=== PATIENT | female | born 1960 | race Two or more races ===

== ENCOUNTER 2022-05-01 19:21 | Emergency (ER) | payer BC ==
[~2022-05-01] VITALS: Ht 152.4 cm; Wt 86.4 kg
[2022-05-01 19:27] VITALS: BP 126/81
[2022-05-01] MEDS ORDERED: ketorolac trometh. 30mg/ml inj. IV ONE (23:20)
[2022-05-01] MEDS ORDERED: ketorolac tromethamine 15mg/ml inj. IM STA (23:24)
[2022-05-02] MEDS ORDERED: oseltamivir phos 75mg capsule PO ONE (00:25)
[2022-05-02] MEDS ORDERED: OSEL75CA17 PO (00:27)
== END 2022-05-02 00:51 | disposition home or self-care (01) ==
LOC: ER 19:23
DX: J10.1 Influenza due to other identified influenza virus with other respiratory manifestations (principal); Z20.822 Contact with and (suspected) exposure to COVID-19; E11.9 Type 2 diabetes mellitus without complications; Z79.899 Other long term (current) drug therapy
CPT/HCPCS: 87502; 87503; 87635; 96372; 99283; C9803; J1885

== ENCOUNTER 2022-07-22 14:51 | Outpatient (CLI) | payer BC ==
[~2022-07-22 14:51] MED LIST: OSEL75CA17 PO
== END 2022-07-22 23:59 | disposition home or self-care (01) ==
LOC: RAD 14:51
PROVIDERS: ATTEND Family Medicine
DX: M19.012 Primary osteoarthritis, left shoulder (principal); M25.551 Pain in right hip
CPT/HCPCS: 73030; 73502

== ENCOUNTER 2024-01-18 13:31 | Outpatient (CLI) | payer BC ==
[~2024-01-18 13:31] MED LIST changes: -ATOR20TA66 PO; -DAPA10TA PO; -FAMO40TA58 PO; -FENO145T38 PO; -LISI2.5T14 PO; -METF500T PO
== END 2024-01-18 23:59 | disposition home or self-care (01) ==
LOC: MRI 13:31
PROVIDERS: ATTEND Family Medicine
DX: M25.551 Pain in right hip (principal); M21.612 Bunion of left foot; N83.201 Unspecified ovarian cyst, right side; M25.661 Stiffness of right knee, not elsewhere classified
CPT/HCPCS: 73721

== ENCOUNTER → 2024-01-18 | Outpatient (CLI) | payer BC ==
[~2024-01-18] MED LIST changes: +ATOR20TA66 PO; +DAPA10TA PO; +FAMO40TA58 PO; +FENO145T38 PO; +LISI2.5T14 PO; +METF500T PO
== END | disposition home or self-care (01) ==
LOC: MRI 08:00
PROVIDERS: ATTEND Family Medicine
DX: S83.231A Complex tear of medial meniscus, current injury, right knee, initial encounter (principal); M25.561 Pain in right knee; M25.531 Pain in right wrist; M94.261 Chondromalacia, right knee; R60.0 Localized edema; M79.641 Pain in right hand; X58.XXXA Exposure to other specified factors, initial encounter; Z68.37 Body mass index [BMI] 37.0-37.9, adult; Y93.89 Activity, other specified; Y92.89 Other specified places as the place of occurrence of the external cause; Y99.8 Other external cause status
CPT/HCPCS: 73721

== ENCOUNTER → 2024-01-18 | Outpatient (CLI) | payer BC | END | disposition home or self-care (01) | LOC: MRI 08:00 | PROVIDERS: ATTEND Family Medicine | DX: M47.816 Spondylosis without myelopathy or radiculopathy, lumbar region (principal); M48.07 Spinal stenosis, lumbosacral region; M43.16 Spondylolisthesis, lumbar region; M51.46 Schmorl's nodes, lumbar region; N28.1 Cyst of kidney, acquired; M79.641 Pain in right hand; M25.531 Pain in right wrist; Z68.37 Body mass index [BMI] 37.0-37.9, adult | CPT/HCPCS: 72148 ==

== ENCOUNTER 2024-02-16 10:38 | Outpatient (CLI) | payer BC ==
[~2024-02-16 10:38] MED LIST changes: +ATOR20TA66 PO; +DAPA10TA PO; +FAMO40TA58 PO; +FENO145T38 PO; +LISI2.5T14 PO; +METF500T PO
== END 2024-02-16 23:59 | disposition home or self-care (01) ==
LOC: RAD 10:38
PROVIDERS: ATTEND Student in an Organized Health Care Education/Training Program
DX: M25.531 Pain in right wrist (principal); M79.641 Pain in right hand; Z68.37 Body mass index [BMI] 37.0-37.9, adult
CPT/HCPCS: 73110; 73130

== ENCOUNTER 2024-08-15 08:45 | Outpatient (CLI) | payer BC ==
[2024-08-15 09:18] LABS: BILIRUBIN,URINE NEGATIVE (Neg); CLARITY,URINE CLEAR (Clear); COLOR,URINE STRAW (Yellow); GLUCOSE, URINE 250 mg/dl (Neg); KETONES,URINE NEGATIVE (Neg); LEUKOCYTE ESTERASE ,URINE NEGATIVE (Neg); NITRITES, URINE NEGATIVE (Neg); OCCULT BLOOD,URINE NEGATIVE (Neg); PROTEIN,URINE NEGATIVE (Neg); UROBILINOGEN,URINE 0.2 E.U/dL (0.2-1.0)
[2024-08-15 09:39] LABS: BASOPHILS % (AUTO) 0.2 % (0-1); EOSINOPHILS # (AUTO) 0.2 X10'3 (0-0.9); EOSINOPHILS % (AUTO) 3.7 % (0-6); HEMATOCRIT 45.6 % (35.0-45.0); HEMOGLOBIN 15.3 g/dl (12.0-16.0); LYMPHOCYTES # (AUTO) 1.7 X10'3 (1.1-4.8); LYMPHOCYTES % (AUTO) 27.9 % (21-51); MEAN CORPUSCULAR HEMOGLOBIN 29.6 PG (27.0-31.0); MEAN CORPUSCULAR HGB CONC 33.5 g/dL (33.0-36.5); MEAN CORPUSCULAR VOLUME 88.4 FL (78-98); MEAN PLATELET VOLUME 8.1 FL (7.4-10.4); MONOCYTES # (AUTO) 0.3 X10'3 (0-0.9); MONOCYTES % (AUTO) 5.5 % (2-12); NEUTROPHILS # (AUTO) 3.8 X10'3 (1.8-7.7); NEUTROPHILS % (AUTO) 62.7 % (42-75); PLATELET COUNT 275 X10'3 (140-440); RED BLOOD COUNT 5.16 X10'6 (4.20-5.60); RED CELL DISTRIBUTION WIDTH 14.2 % (11.5-14.5); WHITE BLOOD COUNT 6.1 X10'3 (4.5-11.0)
[2024-08-15 09:40] LABS: UA COLLECTION TYPE CLN CATCH MIDSTREAM
[2024-08-15 09:50] LABS: HEMOGLOBIN A1C 5.7 % (4.5-6.2)
[2024-08-15 09:56] LABS: ALANINE AMINOTRANSFERASE 45 U/L (12-78); ALBUMIN/GLOBULIN RATIO 1.5 (1.1-1.5); ALKALINE PHOSPHATASE 66 IU/L (46-116); ANION GAP 9 (8-16); ASPARTATE AMINO TRANSFERASE 24 U/L (10-37); BILIRUBIN,TOTAL 0.5 MG/DL (0.1-1.0); BLOOD UREA NITROGEN 8 MG/DL (7-18); CALCIUM 8.8 MG/DL (8.5-10.1); CHLORIDE 104 MMOL/L (99-107); CHOL/HDL RATIO 5.8 (0.00-4.99); CHOLESTEROL 261 MG/DL (0-200); CREATININE 0.73 MG/DL (0.40-0.90); FREE T4 (FREE THYROXINE) 1.34 NG/DL (0.73-1.40); GLUCOSE 101 MG/DL (70-104); HDL CHOLESTEROL 45 MG/DL (35-60); LDL CHOLESTEROL 177 MG/DL (50-100); POTASSIUM 4.1 MMOL/L (3.5-5.1); SODIUM 139 MMOL/L (135-145); THYROID STIMULATING HORMONE 0.92 ulU/ml (0.34-4.50); TOTAL CARBON DIOXIDE 26.4 MMOL/L (24-32); TOTAL PROTEIN 6.6 G/DL (6.4-8.2); TRIGLYCERIDES 166 MG/DL (20-135); eGFR 81 ML/MIN
== END 2024-08-15 23:59 | disposition home or self-care (01) ==
LOC: RAD 08:45
PROVIDERS: ATTEND Student in an Organized Health Care Education/Training Program
DX: E11.9 Type 2 diabetes mellitus without complications (principal)
CPT/HCPCS: 36415; 80053; 80061; 81003; 83036; 84439; 84443; 85025

== ENCOUNTER 2024-08-17 13:58 | Outpatient (CLI) | payer BC | END 2024-08-17 23:59 | disposition home or self-care (01) | LOC: MRI02 13:58 | PROVIDERS: ATTEND Physician Assistant | DX: M50.123 Cervical disc disorder at C6-C7 level with radiculopathy (principal); M47.22 Other spondylosis with radiculopathy, cervical region; M48.02 Spinal stenosis, cervical region; M50.13 Cervical disc disorder with radiculopathy, cervicothoracic region | CPT/HCPCS: 72052; 72141 ==

== ENCOUNTER 2024-11-30 13:25 | Emergency (ER) | payer BC ==
[~2024-11-30] VITALS: Ht 152.4 cm; Wt 85.5 kg
[2024-11-30 13:32] VITALS: TEMP 98.9
--- NOTE | 2024-11-30 13:40 | ELECTROCARDIOGRAPH REPORT ---
[facility] Test Date: 2024-11-30 Test Time: 13:37:31 Pat Name: ADELINA LYON Department: [facility]- Patient ID: [id number] Room: Gender: F Lpn Home Health: : 1960 Requested By: CHARIS BAINS Order Number: [id number] Reading MD: Dr. Sam Barron Measurements Intervals [place] Rate: 76 P: 51 ID: [id number] QRS: 9 QRSD: 108 T: 52 QT: 417 QTc: 469 Interpretive Statements Sinus rhythm RSR' in V1 or V2, right VCD or RVH Electronically Signed On 11-30-2024 18:22:[address] Sam Barron Please click the below link to view image of tracing.
[2024-11-30 14:02] LABS: MEAN PLATELET VOLUME 8.7 FL (7.4-10.4); RED CELL DISTRIBUTION WIDTH 13.2 % (11.5-14.5)
[2024-11-30 14:30] LABS: CREATININE 0.74 MG/DL (0.40-0.90); PRO BRAIN NATRIURETIC PEPTIDE 71 PG/ML (0-125); TOTAL CARBON DIOXIDE 26.4 MMOL/L (24-32); eCRCL 57 ML/MIN; eGFR 80 ML/MIN
--- NOTE | 2024-11-30 14:55 | Physician Documentation ---
History of Present Illness ~ Chief Complaint: Hypertension Stated Complaint: EYE PAIN Time Seen by MD: 14:54 Mode of Arrival: POV, Ambulatory HPI Patient presents to the emergency room with concerns of a right eye with blood in it that she noticed last night. No pain. No traumas. She also notes that her blood pressure is high. No history of high blood pressure. Medication Reconciliation Allergies: Coded Allergies: Penicillins (Unverified Allergy, Intermediate, "NAUSEA/VOMITING/ITCHING, 02/15/24) hydrocodone (Verified Allergy, Unknown, ITCH NAUSEA, 02/15/24) Scheduled Atorvastatin Calcium (Atorvastatin Calcium), 20 MG PO DAILY Dapagliflozin Propanediol (Farxiga), 1 TAB PO DAILY Famotidine (Famotidine), 1 TAB PO DAILY, (Reported) Fenofibrate Nanocrystallized* (Tricor*), 145 MG PO DAILY, (Reported) Lisinopril (Lisinopril), 2.5 MG PO DAILY Metformin Hcl* (Glucophage*), 1 TAB PO Q12H, (Reported) Oseltamivir Phosphate (Oseltamivir Phosphate), 1 CAP PO Q12H Past Medical History Past Medical History: Diabetes Past Surgical History: no surgical history Alcohol Use: None Drug Use: none Review of Systems ROS All review of systems negative except as per HPI Physical Exam Vital Signs: Temperature: 98.9, Source: Temporal, Heart Rate: 73, Respiratory Rate: 14, BP: 144/69, Pulse Oximetry: 98, Weight: 85.500 Oxygen Flow Rate: 0 Physical Exam General: Patient is awake, alert, oriented x4 in no acute distress and well appearing.~ Head: Normocephalic and atraumatic. Eyes: Conjunctival hematoma noted of right eye. EOMI. PERRL. ENT: Mucous membranes moist. Neck: Supple, trachea is midline. Chest: Clear to auscultation bilaterally without rales, rhonchi, or wheezes. There is no accessory muscle use or retractions. Cardiac: RRR without murmurs, gallops, or rubs. Progress Results/Orders Results/Orders Orders - CHAD TOVAR MD Urinalysis, Cult If Indicated (11/30/24 13:35) Completed Orders - CHAD TOVAR MD Cbc/Diff (11/30/24 13:35) BMP (11/30/24 13:35) PBNP (11/30/24 13:35) Electrocardiogram (11/30/24 13:35) Lipase (11/30/24 13:35) Vital Signs 11/30/24 11/30/24 11/30/24 13:32 13:46 13:48 Temp 98.9 Pulse 73 73 Resp 18 16 14 B/P (MAP) 142/78 144/69 (94) Pulse Ox 96 98 O2 Flow Rate 0 0 Laboratory Tests Test 11/30/24 13:49 White Blood Count 5.4 Red Blood Count 4.91 Hemoglobin 15.2 Hematocrit 43.0 Mean Corpuscular Volume 87.6 Mean Corpuscular Hemoglobin 30.9 Mean Corpuscular Hemoglobin Concent 35.3 Red Cell Distribution Width 13.2 Platelet Count 220 Mean Platelet Volume 8.7 Neutrophils (%) (Auto) 50.9 Lymphocytes (%) (Auto) 40.6 Monocytes (%) (Auto) 4.8 Eosinophils (%) (Auto) 2.6 Basophils (%) (Auto) 1.1 H Neutrophils # (Auto) 2.7 Lymphocytes # (Auto) 2.2 Monocytes # (Auto) 0.3 Eosinophils # (Auto) 0.1 Basophils # (Auto) 0.1 CBC Comment Sodium Level 138 Potassium Level 3.5 Chloride Level 103 Carbon Dioxide Level 26.4 Anion Gap 9 Blood Urea Nitrogen 15 Creatinine 0.74 Estimated GFR/1.73 m2 80 BUN/Creatinine Ratio 20.3 H Glucose Level 137 H Calcium Level 9.0 Pro-B-Type Natriuretic Peptide 71 Albumin 3.8 Lipase 50 Chemistry Comments EKG/XRAY/CT/US/VASC/MRI EKG : Additional Comment EKG interpreted by myself shows time of 1337, rate 76, sinus rhythm, normal axis, no ST changes Medical Decision Making Findings Patient presented to the emergency room with blood in her right eye and elevated blood pressures. Differentials include but are not limited to hypertensive emergency, uncontrolled hypertension, subconjunctival hematoma, I laceration. Physical exam is consistent with subconjunctival hematoma. Upon my evaluation patient's blood pressure was 117 systolic and labs show she is not suffering from any hypertensive emergency. The need to follow up with her doctor discussed. Departure Disposition: HOME / SELF CARE / HOMELESS Impression: Primary Impression: Subconjunctival hematoma Condition: Stable Discharge Instructions: Subconjunctival Hemorrhage Additional Instructions: Begin blood pressure log at home to establish your average blood pressure. Bring this log to your doctor to see if you require blood pressure medications. Referrals: NO PRIMARY CARE PROVIDER (PCP) Education Educated: Patient Educated regarding: diagnosis, need for follow up Signature Scribe Signature: No scribe Attestation: The note accurately reflects work and decisions made by me.Chad Tovar MD 11/30/24 15:07 CHAD TOVAR MD Nov 30, 2024 14:55
[2024-11-30 15:04] VITALS: BP 117/65; PULSE 70; RESP 16; O2SAT 98
== END 2024-11-30 15:13 | disposition home or self-care (01) ==
LOC: ER 13:26
DX: S05.11XA Contusion of eyeball and orbital tissues, right eye, initial encounter (principal); H11.31 Conjunctival hemorrhage, right eye; I10 Essential (primary) hypertension; E11.9 Type 2 diabetes mellitus without complications; Z88.0 Allergy status to penicillin; Z88.5 Allergy status to narcotic agent; Z79.899 Other long term (current) drug therapy; X58.XXXA Exposure to other specified factors, initial encounter; Y93.89 Activity, other specified; Y92.89 Other specified places as the place of occurrence of the external cause; Y99.8 Other external cause status
CPT/HCPCS: 36415; 80048; 83690; 83880; 85025; 93005; 99284

== ENCOUNTER 2024-12-13 13:27 | Outpatient (CLI) | payer BC ==
[2024-12-13 14:50] LABS: CHOL/HDL RATIO 6.7 (0.00-4.99); CREATININE 0.64 MG/DL (0.40-0.90); LDL CHOLESTEROL 149 MG/DL (50-100); TOTAL CARBON DIOXIDE 28.6 MMOL/L (24-32); eGFR > 90 ML/MIN
== END 2024-12-13 23:59 | disposition home or self-care (01) ==
LOC: RAD 13:27
PROVIDERS: ATTEND Physician Assistant
DX: E78.5 Hyperlipidemia, unspecified (principal); B35.1 Tinea unguium
CPT/HCPCS: 36415; 80053; 80061

== ENCOUNTER 2025-02-26 14:53 | Outpatient (CLI) | payer BC ==
--- NOTE | 2025-02-26 21:39 | RADIOLOGY REPORT ---
EXAM: MR MRI LUMBAR SPINE INDICATION: VERTEBROGENIC LOW BACK PAIN TECHNIQUE: Multiplanar, multisequence MR images of the lumbar spine were obtained without the administration of IV contrast. COMPARISON: MR MRI C SPINE on DOS: 08/17/24 FINDINGS: [ANATOMY]: Five lumbar-type vertebral bodies are present. The most inferior well-formed disc space will be referred to as L5-S1 for purposes of numbering in this report. [VERTEBRAL BODIES]: The vertebral bodies are normal in height, alignment, and marrow signal. [SPINAL CANAL]: The conus medullaris is normal in signal and morphology, terminating at the L1-L2 level. Superior spinal canal narrowing at L2-3, L3-4, L4-5 with circumferential narrowing down to 6-7 mm. [FACETS]: [id number] bilateral facet arthropathy in the lower lumbar spine [OTHER]: None. LEVEL BY LEVEL DISCUSSION: [T12-L1]: Unremarkable. [L1-L2]: Circumferential disc bulge with 2-3 mm posterior extension. [L2-L3]: Circumferential disc bulge with intervertebral disc height loss with 3- 4 mm posterior extension. Facet arthropathy. At least moderate bilateral foraminal narrowing. Spinal canal narrowing. [L3-L4]: Circumferential disc bulge. 5 mm posterior extension. Ligamentum flavum buckling. Severe facet arthropathy. [L4-L5]: Broad-based posterior disc protrusion measuring 5 mm. Ligamentum flavum buckling. Severe bilateral facet arthropathy [L5-S1]: Disc bulge with trace posterior disc extension bilateral facet arthropathy. Severe bilateral foraminal narrowing IMPRESSION: 1. Multilevel spondylosis with spinal canal and foraminal narrowing as detailed above.
== END 2025-02-26 23:59 | disposition home or self-care (01) ==
LOC: MRI02 14:53
PROVIDERS: ATTEND Physician Assistant
DX: M51.17 Intervertebral disc disorders with radiculopathy, lumbosacral region (principal); M47.27 Other spondylosis with radiculopathy, lumbosacral region; M48.07 Spinal stenosis, lumbosacral region
CPT/HCPCS: 72148